=== PATIENT | female | born 2000 | race Two or more races ===

== ENCOUNTER 2020-04-15 09:09 | Observation (INO) | payer MEDICAID ==
[~2020-04-15] VITALS: Ht 157.5 cm; Wt 86.6 kg
[2020-04-15] MEDS ORDERED: BETAMETHASONE ACET/BETAMET 30 MG/5 ML VIAL IM NR (22:30)
[2020-04-15 22:33] LABS: CLARITY URINE CLEAR (CLEAR); COLOR URINE YELLOW (YELLOW); KETONES URINE NEGATIVE (NEGATIVE); LEUKOCYTE ESTERASE URINE NEGATIVE (NEGATIVE); NITRITE URINE NEGATIVE (NEGATIVE); OCCULT BLOOD URINE NEGATIVE (NEGATIVE); PROTEIN URINE NEGATIVE (NEGATIVE); SPECIFIC GRAVITY URINE 1.013 (1.005-1.030); UROBILINOGEN URINE 0.2 E.U./dL (0.2-1.0)
[2020-04-15] MEDS ORDERED: LACTATED RINGERS 1,000 ML IV SCH (23:00)
[2020-04-15 23:08] LABS: BASOPHILS % 0.5 % (0.0-2.0); EOSINOPHILS % 1.2 % (0.0-5.0); HEMATOCRIT. 35.8 % (36.0-48.0); LYMPHOCYTES % 22.9 % (20.0-50.0); MEAN CORPUSCULAR HEMOGLOBIN 30.1 pg (28.0-32.0); MEAN CORPUSCULAR VOLUME 89.7 fL (81.0-99.0); MEAN PLATELET VOLUME 8.5 fl (7.4-10.4); MONOCYTES % 6.9 % (2.0-8.0); NEUTROPHILS % 68.5 % (40.0-76.0); PLATELET 244 x1000/uL (130-400); RED BLOOD CELL COUNT 3.99 mill/uL (4.2-5.4); RED CELL DISTRIBUTION WIDTH 13.4 % (11.6-14.6)
[2020-04-15 23:11] LABS: CHLORIDE 107 mEq/L (98-107)
[2020-04-16] MEDS ORDERED: LACTATED RINGERS 1,000 ML IV SCH
[2020-04-16] MEDS: TERBUTALINE SULFATE 1MG/ML VIAL SUBCUT PRN ×3 (01:39→06:52)
== END 2020-04-16 08:30 | disposition home or self-care (01) ==
LOC: 8 EST LDRP 09:09
PROVIDERS: ADMIT Obstetrics & Gynecology; ATTEND Obstetrics & Gynecology
DX: O26.893 Other specified pregnancy related conditions, third trimester (principal); R10.30 Lower abdominal pain, unspecified; Z3A.30 30 weeks gestation of pregnancy
CPT/HCPCS: 36415; 59025; 76805; 76818; 80048; 81003; 85025; 96360; 96361; 96372; G0378; J0702; J3105; J7120; 99281

== ENCOUNTER 2020-04-16 23:48 | Observation (INO) | payer MEDICAID ==
[~2020-04-16] VITALS: Ht 157.5 cm; Wt 88.5 kg
[2020-04-17] MEDS ORDERED: BETAMETHASONE ACET/BETAMET 30 MG/5 ML VIAL IM ONE (00:30)
== END 2020-04-17 00:55 | disposition home or self-care (01) ==
LOC: 8 EST LDRP 23:48
PROVIDERS: ADMIT Obstetrics & Gynecology; ATTEND Obstetrics & Gynecology
DX: Z34.93 Encounter for supervision of normal pregnancy, unspecified, third trimester (principal); Z3A.30 30 weeks gestation of pregnancy
CPT/HCPCS: 59025; 96372; G0378; J0702; 99281

== ENCOUNTER 2020-06-28 17:24 | Observation (INO) | payer MEDICAID ==
[~2020-06-28] VITALS: Ht 157.5 cm; Wt 92.5 kg
[2020-06-28] MEDS ORDERED: PREN-182 PO (21:30)
== END 2020-06-28 23:00 | disposition home or self-care (01) ==
LOC: 8 EST LDRP 17:24
PROVIDERS: ADMIT Obstetrics & Gynecology; ATTEND Obstetrics & Gynecology
DX: O98.513 Other viral diseases complicating pregnancy, third trimester (principal); U07.1 COVID-19; O48.0 Post-term pregnancy; Z3A.40 40 weeks gestation of pregnancy
CPT/HCPCS: 59025; 76805; 76818; 87426; G0378; 99281

== ENCOUNTER 2020-06-30 08:04 | Inpatient (IN) | payer MEDICAID ==
[~2020-06-30] VITALS: Ht 157.5 cm; Wt 81.6 kg
[~2020-06-30 08:04] MED LIST: PREN-182 PO
[2020-06-30] MEDS ORDERED: BUTORPHANOL TARTRATE 2 MG/ML VIAL IV PRN (08:30)
[2020-06-30] MEDS ORDERED: CARBOPROST TROMETHAMINE 250 MCG/ML AMPUL IM PRN (08:30)
[2020-06-30] MEDS ORDERED: METHYLERGONOVINE MALEATE 0.2 MG/ML IM PRN (08:30)
[2020-06-30] MEDS ORDERED: NALOXONE HCL 0.4 MG/ML 1ML VIAL IM PRN (08:30)
[2020-06-30] MEDS ORDERED: LIDOCAINE HCL 1% 20ML VIAL (Pyxis) INJ INFIL SCH (08:30)
[2020-06-30] MEDS ORDERED: MISOPROSTOL 100MCG TABLET RC SCH (08:30)
[2020-06-30] MEDS ORDERED: DEXT 5%/LACTATED RINGERS 1,000 ML IV SCH (09:06)
[2020-06-30] MEDS: LACTATED RINGERS 1,000 ML IV SCH ×3 (09:11→20:48)
[2020-06-30 09:17] LABS: BASOPHILS % 0.4 % (0.0-2.0); EOSINOPHILS % 1.4 % (0.0-5.0); HEMATOCRIT. 36.3 % (36.0-48.0); HEMOGLOBIN. 12.1 g/dL (12.0-16.0); LYMPHOCYTES % 33.7 % (20.0-50.0); MEAN CORPUSCULAR HEMOGLOBIN 29.4 pg (28.0-32.0); MEAN CORPUSCULAR VOLUME 88.1 fL (81.0-99.0); MEAN PLATELET VOLUME 10.2 fl (7.4-10.4); MONOCYTES % 5.9 % (2.0-8.0); NEUTROPHILS % 58.6 % (40.0-76.0); PLATELET 186 x1000/uL (130-400); RED BLOOD CELL COUNT 4.12 mill/uL (4.2-5.4)
[2020-06-30 09:28] LABS: INR 0.9; PARTIAL THROMBOPLASTIN TIME 27.1 sec (23.4-31.0)
[2020-06-30] MEDS ORDERED: OXYTOCIN 10 UNITS/ML 1ML ONE (10:00)
[2020-06-30] MEDS ORDERED: PENICILLIN G POTASSIUM 5 MMU in DEXT 5% WATER 100 ML IV SCH (11:30)
[2020-06-30] MEDS ORDERED: PENICILLIN G POTASSIUM 2.5 MMU in DEXTROSE 5% WATER 50 ML IV SCH (11:45)
[2020-06-30 12:06] LABS: HEPATITIS B SURFACE ANTIGEN NEGATIVE
[2020-06-30] MEDS: DEXT 5%/LR + PITOCIN 20UNITS/L 1,000 ML IV SCH ×2 (13:49→13:53)
[2020-06-30] MEDS ORDERED: LIDOCAINE HCL 2%/EPINEPHRINE 1:100,000 20 ML VIAL INFIL ONE (15:45)
[2020-06-30] MEDS ORDERED: ROPIVACAINE HCL/PF EPIDURAL 200 ML EPI SCH (15:45)
[2020-06-30] MEDS ORDERED: EPHEDRINE SULFATE 50MG/ML VIAL ONE (19:05)
[2020-06-30] MEDS ORDERED: CLINDAMYCIN 900 MG in DEXTROSE 5% WATER 50 ML IV SCH (19:45)
[2020-06-30] MEDS: CLINDAMYCIN 900 MG PREMIX 50 ML IV SCH (20:48)
[2020-06-30] MEDS ORDERED: CLINDAMYCIN 900 MG PREMIX 50 ML IV SCH ×2 (22:00)
[2020-07-01] MEDS ORDERED: FENTANYL CITRATE/PF 50MCG/ML 2ML VIAL ONE ×2 (01:25→05:10)
[2020-07-01] MEDS: CLINDAMYCIN 900 MG PREMIX 50 ML IV SCH (04:45)
[2020-07-01] MEDS: DEXT 5%/LR + PITOCIN 20UNITS/L 1,000 ML IV SCH (10:41)
[2020-07-01 12:00] VITALS: BP 129/72
[2020-07-01] MEDS ORDERED: IBUPROFEN 400MG TABLET PO PRN (12:15)
[2020-07-01] MEDS ORDERED: GLYCERIN/WITCH HAZEL LEAF MEDICATED PAD TOP PRN (12:15)
[2020-07-01] MEDS ORDERED: DEXT 5%/LR + PITOCIN 20UNITS/L 1,000 ML IV SCH (12:15)
[2020-07-01] MEDS ORDERED: BENZOCAINE/LANOLIN/ALOE VERA SPRAY TOP PRN (12:15)
[2020-07-01] MEDS ORDERED: LANOLIN OINT 7GM TUBE TOP PRN (12:15)
[2020-07-01] MEDS ORDERED: RHO(D) IMMUNE GLOBULIN 300 MCG/SYR IM PRN (12:15)
[2020-07-01] MEDS ORDERED: DIPHENHYDRAMINE 25MG CAPSULE PO PRN (12:15)
[2020-07-01] MEDS ORDERED: HEMORRHOIDAL SUPP PR PRN (12:15)
[2020-07-01 13:00] VITALS: BP 117/57
[2020-07-01] MEDS: IBUPROFEN 800MG TABLET PO PRN ×2 (13:17→19:39)
[2020-07-01 17:20] VITALS: BP 116/59
[2020-07-01 20:00] VITALS: BP 103/56
[2020-07-01] MEDS ORDERED: DOCUSATE SODIUM 100MG CAPSULE PO SCH (21:00)
[2020-07-02] MEDS: IBUPROFEN 800MG TABLET PO PRN ×3 (03:12→16:03)
[2020-07-02 04:00] VITALS: BP 129/58
[2020-07-02 07:20] LABS: HEMATOCRIT 24.3 % (36.0-48.0); HEMOGLOBIN 8.1 g/dL (12.0-16.0)
[2020-07-02 08:00] VITALS: BP 108/59
[2020-07-02] MEDS ORDERED: PRENATAL VIT/FE FUMARATE/FA TABLET PO SCH (09:00)
[2020-07-02 16:00] VITALS: BP 117/56
[2020-07-02 16:03] VITALS: BP 129/58
[2020-07-02] MEDS: FERROUS SULFATE 325MG TABLET PO SCH ×2 (16:03→16:59)
[2020-07-02 17:05] LABS: HEMATOCRIT. 25.4 % (36.0-48.0); HEMOGLOBIN. 8.2 g/dL (12.0-16.0); MEAN CORPUSCULAR HEMOGLOBIN 29.1 pg (28.0-32.0); MEAN CORPUSCULAR VOLUME 90.2 fL (81.0-99.0); MEAN PLATELET VOLUME 11.3 fl (7.4-10.4); PLATELET 139 x1000/uL (130-400); RED BLOOD CELL COUNT 2.81 mill/uL (4.2-5.4); RED CELL DISTRIBUTION WIDTH 13.2 % (11.6-14.6)
[2020-07-02 17:27] LABS: PLATELET ESTIMATE NORMAL
[2020-07-02 18:12] LABS: BASOPHILS % 0.3 % (0.0-2.0); EOSINOPHILS % 0.6 % (0.0-5.0); HEMOGLOBIN. 8.3 g/dL (12.0-16.0); MEAN CORPUSCULAR HEMOGLOBIN 29.6 pg (28.0-32.0); MEAN CORPUSCULAR VOLUME 88.7 fL (81.0-99.0); MEAN PLATELET VOLUME 9.9 fl (7.4-10.4); MONOCYTES % 6.4 % (2.0-8.0); NEUTROPHILS % 72.7 % (40.0-76.0); PLATELET 150 x1000/uL (130-400); RED BLOOD CELL COUNT 2.82 mill/uL (4.2-5.4); RED CELL DISTRIBUTION WIDTH 13.1 % (11.6-14.6)
== END 2020-07-02 21:00 | disposition home or self-care (01) | DRG 560 ==
LOC: L&D 08:04 → OBSVTOIN 08:04
PROVIDERS: ADMIT Obstetrics & Gynecology; ATTEND Obstetrics & Gynecology
PROC: 10E0XZZ Delivery of Products of Conception, External Approach (ICD-10-PCS; principal; 2020-07-02)
PROC: 3E0R3BZ Introduction of Anesthetic Agent into Spinal Canal, Percutaneous Approach (ICD-10-PCS; 2020-07-02)
PROC: 00HU33Z Insertion of Infusion Device into Spinal Canal, Percutaneous Approach (ICD-10-PCS; 2020-07-02)
DX: O98.52 Other viral diseases complicating childbirth (principal); U07.1 COVID-19; O48.0 Post-term pregnancy; O99.12 Other diseases of the blood and blood-forming organs and certain disorders involving the immune mechanism complicating childbirth; O99.02 Anemia complicating childbirth; D62 Acute posthemorrhagic anemia; D72.829 Elevated white blood cell count, unspecified; Z37.0 Single live birth; Z3A.00 Weeks of gestation of pregnancy not specified
CPT/HCPCS: 36415; 85014; 85018; 85025; 86592; 86703; 86762; 86850; 86900; 87340; 88307; 99281; J0595; J2590; J3010; J3490